=== PATIENT | female | born 1995 | race Two or more races ===

== ENCOUNTER 2019-05-10 14:38 | Emergency (ER) | payer OTHER ==
[~2019-05-10] VITALS: Ht 157.5 cm; Wt 168.2 kg
[2019-05-10 14:42] VITALS: BP 140/96
[2019-05-10] MEDS ORDERED: ondansetron/PF 4mg/2ml inj IV ONE (15:00)
[2019-05-10] MEDS ORDERED: normal saline 1000ML IV soln IVB ONE (15:00)
[2019-05-10] MEDS ORDERED: morphine 4 MG/ML inj SYRINge IV ONE (15:00)
[2019-05-10 15:06] LABS: BASOPHILS # (AUTO) 0.1 X10'3 (0-0.2); BASOPHILS % (AUTO) 0.5 % (0-1); EOSINOPHILS # (AUTO) 0.2 X10'3 (0-0.9); EOSINOPHILS % (AUTO) 1.2 % (0-6); HEMOGLOBIN 14.2 g/dl (12.0-16.0); LYMPHOCYTES # (AUTO) 1.7 X10'3 (1.1-4.8); LYMPHOCYTES % (AUTO) 9.6 % (21-51); MEAN CORPUSCULAR HEMOGLOBIN 28.8 PG (27.0-31.0); MEAN CORPUSCULAR VOLUME 87.3 FL (78-98); MEAN PLATELET VOLUME 6.8 FL (7.4-10.4); MONOCYTES # (AUTO) 1.2 X10'3 (0-0.9); MONOCYTES % (AUTO) 7.1 % (2-12); NEUTROPHILS % (AUTO) 81.6 % (42-75); PLATELET COUNT 338 X10'3 (140-440); RED BLOOD COUNT 4.93 X10'6 (4.20-5.60); WHITE BLOOD COUNT 17.2 X10'3 (4.5-11.0)
[2019-05-10 15:21] LABS: ALANINE AMINOTRANSFERASE 31 U/L (12-78); ALBUMIN 3.7 G/DL (3.4-5.0); ALBUMIN/GLOBULIN RATIO 0.9 (1.1-1.5); ALKALINE PHOSPHATASE 73 IU/L (46-116); AMYLASE 29 U/L (25-115); ANION GAP 8 (8-16); ASPARTATE AMINO TRANSFERASE 20 U/L (10-37); BILIRUBIN,TOTAL 0.3 MG/DL (0.1-1.0); BLOOD UREA NITROGEN 14 MG/DL (7-18); BUN/CREATININE RATIO 18.4 (6.6-38.0); CALCIUM 8.7 MG/DL (8.5-10.1); CHLORIDE 104 MMOL/L (99-107); CREATININE 0.76 MG/DL (0.40-0.90); GLUCOSE 85 MG/DL (70-104); LIPASE 79 U/L (73-393); SODIUM 138 MMOL/L (135-145); TOTAL CARBON DIOXIDE 25.9 MMOL/L (24-32); TOTAL PROTEIN 7.7 G/DL (6.4-8.2); eGFR > 90 ML/MIN
[2019-05-10] MEDS ORDERED: morphine 4 MG/ML inj SYRINge IM ONE (15:25)
[2019-05-10] MEDS ORDERED: ondansetron 4mg rapidly disintigrating tab PO ONE (15:25)
[2019-05-10 15:40] LABS: HCG SERUM QL NEGATIVE
[2019-05-10] MEDS ORDERED: iohexol 300mg/ml 100ml inj. ONE (15:49)
== END 2019-05-10 16:54 | disposition home or self-care (01) ==
LOC: ER 14:39
DX: R10.84 Generalized abdominal pain (principal); D72.829 Elevated white blood cell count, unspecified; R19.7 Diarrhea, unspecified
CPT/HCPCS: 36415; 74176; 76700; 80053; 82150; 83690; 84703; 85025; 85610; 96372; 99284; J2270; J2405; Q9967

== ENCOUNTER 2020-06-05 18:43 | Emergency (ER) | payer MEDICAID ==
[~2020-06-05] VITALS: Ht 157.5 cm; Wt 167.0 kg
[2020-06-05] MEDS ORDERED: azithromycin 250mg tablet PO ONE (19:15)
[2020-06-05] MEDS ORDERED: AZIT250T82 PO (19:26)
[2020-06-05] MEDS ORDERED: CIPR10DR RIGHT EAR (19:26)
[2020-06-05 19:40] VITALS: BP 154/85
--- NOTE | 2020-06-06 14:24 | NUR ---
[facility] CALLED REGARDING RX GIVEN BY DR STOCKTON FOR RT EAR INFECTION. STATES THAT CIPRO OTIC GTTS IS NOT COVERED BY PT'S [employer]NER[employer] INSURANCE AND REQUESTED A CHANGE IN RX. THERESE OWEN CONSULTED; RX CHANGED TO CORTISPORIN OTIC GTTS, 2 GTTS RT EAR Q6HRS x10 DAYS
== END 2020-06-05 19:41 | disposition home or self-care (01) ==
LOC: ER 18:44
DX: H60.8X1 Other otitis externa, right ear (principal); H66.91 Otitis media, unspecified, right ear; Z79.2 Long term (current) use of antibiotics
CPT/HCPCS: 99283

== ENCOUNTER 2020-06-07 15:59 | Emergency (ER) | payer MEDICAID ==
[~2020-06-07] VITALS: Ht 157.5 cm; Wt 165.0 kg
[~2020-06-07 15:59] MED LIST: AZIT250T82 PO; CIPR10DR RIGHT EAR
[2020-06-07 16:07] VITALS: BP 168/101
[2020-06-07] MEDS ORDERED: AMOX-117 PO (16:59)
[2020-06-07] MEDS ORDERED: HYDR-4353 PO (16:59)
[2020-06-07] MEDS ORDERED: amox tr/potassium clavulanate 875/125mg TAB PO ONE (17:05)
[2020-06-07] MEDS ORDERED: neomy sulf/polymyx B sulf/HC 10ml otic suspension RIGHT EAR ONE (17:05)
== END 2020-06-07 17:58 | disposition home or self-care (01) ==
LOC: ER 16:00
DX: H60.91 Unspecified otitis externa, right ear (principal); Z79.2 Long term (current) use of antibiotics; Z79.899 Other long term (current) drug therapy
CPT/HCPCS: 99283

== ENCOUNTER 2021-07-02 08:26 | Emergency (ER) | payer MEDICAID ==
[~2021-07-02] VITALS: Ht 157.5 cm; Wt 155.0 kg
[2021-07-02 09:04] VITALS: BP 140/79
[2021-07-02] MEDS ORDERED: CIPR-202 PO (09:30)
== END 2021-07-02 09:38 | disposition home or self-care (01) ==
LOC: ER 08:27
DX: H60.8X3 Other otitis externa, bilateral (principal)
CPT/HCPCS: 99283

== ENCOUNTER 2021-07-05 20:57 | Emergency (ER) | payer MEDICAID ==
[~2021-07-05] VITALS: Ht 157.5 cm; Wt 152.7 kg
[~2021-07-05 20:57] MED LIST changes: -AZIT250T82 PO; +CIPR-202 PO; -CIPR10DR RIGHT EAR
[2021-07-05 21:10] VITALS: BP 149/97
[2021-07-05] MEDS ORDERED: ketorolac trometh. 30mg/ml inj. IM ONE (22:45)
== END 2021-07-05 23:24 | disposition home or self-care (01) ==
LOC: ER 21:00
DX: M25.562 Pain in left knee (principal); Z79.2 Long term (current) use of antibiotics
CPT/HCPCS: 73564; 96372; 99283; J1885

== ENCOUNTER 2021-10-20 12:38 | Emergency (ER) | payer MEDICAID ==
[~2021-10-20] VITALS: Ht 157.5 cm; Wt 160.0 kg
[2021-10-20 12:56] VITALS: BP 117/78
[2021-10-20 14:37] LABS: CLARITY,URINE CLOUDY (Clear); COLOR,URINE YELLOW (Yellow); GLUCOSE, URINE NEGATIVE (Neg); KETONES,URINE NEGATIVE (Neg); NITRITES, URINE NEGATIVE (Neg); OCCULT BLOOD,URINE TRACE-LYSED (Neg); PROTEIN,URINE NEGATIVE (Neg); UA COLLECTION TYPE CLN CATCH MIDSTREAM
[2021-10-20 14:38] LABS: LEUKOCYTE ESTERASE ,URINE SMALL (Neg); URINE HCG NEGATIVE (NEG)
[2021-10-20 14:42] LABS: BACTERIA,URINE 3+ /HPF (Neg); MUCUS STRANDS NONE SEEN /LPF (Neg); RBC,URINE 0-2 /HPF (0-2); SQUAMOUS EPITHELIAL CELL,UR MANY /LPF (FEW); WBC,URINE 20-30 /HPF (0-4)
[2021-10-20] MEDS ORDERED: SULF1TAB45 PO (14:58)
[2021-10-20] MEDS ORDERED: ONDA4TAB6 PO (15:20)
[2021-10-21] MEDS ORDERED: pantoprazole 40mg Tablet.DR PO SCH (07:30)
== END 2021-10-20 16:48 | disposition home or self-care (01) ==
LOC: ER 12:44
DX: N39.0 Urinary tract infection, site not specified (principal); R10.84 Generalized abdominal pain; R51.9 Headache, unspecified; R53.83 Other fatigue; R11.2 Nausea with vomiting, unspecified; R19.7 Diarrhea, unspecified; Z79.2 Long term (current) use of antibiotics; Z79.899 Other long term (current) drug therapy
CPT/HCPCS: 81001; 81025; 87502; 87503; 99283

== ENCOUNTER 2022-05-06 06:53 | Emergency (ER) | payer MEDICAID ==
[~2022-05-06] VITALS: Ht 157.5 cm; Wt 154.7 kg
[~2022-05-06 06:53] MED LIST changes: -CIPR-202 PO; +ONDA4TAB6 PO
[2022-05-06 07:01] VITALS: BP 142/90
[2022-05-06 07:24] LABS: URINE HCG NEGATIVE (NEG)
[2022-05-06 07:28] LABS: CLARITY,URINE SLIGHTLY CLOUDY (Clear); COLOR,URINE YELLOW (Yellow); GLUCOSE, URINE NEGATIVE (Neg); KETONES,URINE NEGATIVE (Neg); LEUKOCYTE ESTERASE ,URINE SMALL (Neg); NITRITES, URINE NEGATIVE (Neg); OCCULT BLOOD,URINE NEGATIVE (Neg); PROTEIN,URINE NEGATIVE (Neg); UROBILINOGEN,URINE 0.2 E.U/dL (0.2-1.0)
[2022-05-06 07:35] LABS: UA COLLECTION TYPE CLN CATCH MIDSTREAM
[2022-05-06 07:40] LABS: BACTERIA,URINE 1+ /HPF (Neg); RBC,URINE 0-2 /HPF (0-2); SQUAMOUS EPITHELIAL CELL,UR MANY /LPF (FEW)
[2022-05-06] MEDS ORDERED: cephalexin 250mg capsule PO ONE ×2 (08:35→09:00)
[2022-05-06 08:54] LABS: BASOPHILS # (AUTO) 0.1 X10'3 (0-0.2); BASOPHILS % (AUTO) 0.8 % (0-1); EOSINOPHILS # (AUTO) 0.2 X10'3 (0-0.9); HEMATOCRIT 45.3 % (35.0-45.0); LYMPHOCYTES # (AUTO) 2.1 X10'3 (1.1-4.8); LYMPHOCYTES % (AUTO) 22.4 % (21-51); MEAN CORPUSCULAR HEMOGLOBIN 28.5 PG (27.0-31.0); MEAN CORPUSCULAR HGB CONC 33.1 g/dL (33.0-36.5); MEAN CORPUSCULAR VOLUME 86.2 FL (78-98); MEAN PLATELET VOLUME 7.1 FL (7.4-10.4); MONOCYTES # (AUTO) 0.7 X10'3 (0-0.9); MONOCYTES % (AUTO) 7.5 % (2-12); NEUTROPHILS # (AUTO) 6.4 X10'3 (1.8-7.7); NEUTROPHILS % (AUTO) 67.3 % (42-75); PLATELET COUNT 323 X10'3 (140-440); RED BLOOD COUNT 5.26 X10'6 (4.20-5.60); RED CELL DISTRIBUTION WIDTH 13.1 % (11.5-14.5); WHITE BLOOD COUNT 9.5 X10'3 (4.5-11.0)
[2022-05-06 08:57] LABS: ANION GAP 9 (8-16); BLOOD UREA NITROGEN 15 MG/DL (7-18); BUN/CREATININE RATIO 21.7 (6.6-38.0); CALCIUM 8.8 MG/DL (8.5-10.1); CHLORIDE 105 MMOL/L (99-107); CREATININE 0.69 MG/DL (0.40-0.90); GLUCOSE 86 MG/DL (70-104); POTASSIUM 3.7 MMOL/L (3.5-5.1); SODIUM 141 MMOL/L (135-145); TOTAL CARBON DIOXIDE 27.4 MMOL/L (24-32); eGFR > 90 ML/MIN
[2022-05-06 08:58] LABS: ALANINE AMINOTRANSFERASE 32 U/L (12-78); ALBUMIN 3.8 G/DL (3.4-5.0); ALBUMIN/GLOBULIN RATIO 0.9 (1.1-1.5); ALKALINE PHOSPHATASE 69 IU/L (46-116); ASPARTATE AMINO TRANSFERASE 23 U/L (10-37); BILIRUBIN,TOTAL 0.4 MG/DL (0.1-1.0); LIPASE 57 U/L (73-393); TOTAL PROTEIN 7.9 G/DL (6.4-8.2)
[2022-05-06] MEDS ORDERED: CEPH-585 PO (08:58)
== END 2022-05-06 09:39 | disposition home or self-care (01) ==
LOC: ER 06:54
DX: N39.0 Urinary tract infection, site not specified (principal)
CPT/HCPCS: 36415; 80053; 81001; 81025; 83690; 85025; 99283

== ENCOUNTER 2022-07-12 22:51 | Emergency (ER) | payer MEDICAID ==
[~2022-07-12] VITALS: Ht 157.5 cm; Wt 166.4 kg
[~2022-07-12 22:51] MED LIST changes: +CEPH-585 PO
[2022-07-12] MEDS ORDERED: dexamethasone sod phosphate 10mg/ml inj IV STA (23:22)
[2022-07-12] MEDS ORDERED: albuterol 2.5 MG/3 ML nebule NEB ONE (23:25)
[2022-07-12 23:53] LABS: BASOPHILS % (AUTO) 0.7 % (0-1); EOSINOPHILS # (AUTO) 0.1 X10'3 (0-0.9); EOSINOPHILS % (AUTO) 1.9 % (0-6); HEMATOCRIT 47.7 % (35.0-45.0); LYMPHOCYTES # (AUTO) 1.6 X10'3 (1.1-4.8); LYMPHOCYTES % (AUTO) 22.9 % (21-51); MEAN CORPUSCULAR HEMOGLOBIN 29.6 PG (27.0-31.0); MEAN CORPUSCULAR HGB CONC 33.5 g/dL (33.0-36.5); MEAN CORPUSCULAR VOLUME 88.4 FL (78-98); MEAN PLATELET VOLUME 6.8 FL (7.4-10.4); MONOCYTES % (AUTO) 14.7 % (2-12); NEUTROPHILS # (AUTO) 4.2 X10'3 (1.8-7.7); NEUTROPHILS % (AUTO) 59.8 % (42-75); PLATELET COUNT 271 X10'3 (140-440); RED CELL DISTRIBUTION WIDTH 13.3 % (11.5-14.5); WHITE BLOOD COUNT 7.1 X10'3 (4.5-11.0)
[2022-07-13 00:04] LABS: D-DIMER 0.65 MG/L FEU (0-0.50)
[2022-07-13 00:08] LABS: ALANINE AMINOTRANSFERASE 35 U/L (12-78); ALBUMIN 3.8 G/DL (3.4-5.0); ALBUMIN/GLOBULIN RATIO 0.8 (1.1-1.5); ALKALINE PHOSPHATASE 75 IU/L (46-116); ANION GAP 12 (8-16); ASPARTATE AMINO TRANSFERASE 23 U/L (10-37); BILIRUBIN,TOTAL 0.4 MG/DL (0.1-1.0); BLOOD UREA NITROGEN 11 MG/DL (7-18); BUN/CREATININE RATIO 13.3 (6.6-38.0); CALCIUM 8.8 MG/DL (8.5-10.1); CHLORIDE 104 MMOL/L (99-107); CREATININE 0.83 MG/DL (0.40-0.90); GLUCOSE 91 MG/DL (70-104); POTASSIUM 3.7 MMOL/L (3.5-5.1); SODIUM 142 MMOL/L (135-145); TOTAL CARBON DIOXIDE 26.3 MMOL/L (24-32); TOTAL PROTEIN 8.4 G/DL (6.4-8.2); eGFR 83 ML/MIN
[2022-07-13] MEDS ORDERED: iohexol 350MG/ML 100ml bottle IV ONE (01:44)
[2022-07-13 03:15] LABS: HCG SERUM QL NEGATIVE
--- NOTE | 2022-07-13 03:45 | NUR ---
PT IS IN CT SCAN
[2022-07-13] MEDS ORDERED: ALBU8.5H17 IH (04:55)
[2022-07-13] MEDS ORDERED: PRED20TA PO (04:55)
[2022-07-13] MEDS ORDERED: NIRM1TAB PO (05:05)
[2022-07-13 05:17] VITALS: BP 141/76
== END 2022-07-13 05:21 | disposition home or self-care (01) ==
LOC: ER 22:52
DX: U07.1 COVID-19 (principal); F17.200 Nicotine dependence, unspecified, uncomplicated; F12.10 Cannabis abuse, uncomplicated; Z79.899 Other long term (current) drug therapy; Z79.2 Long term (current) use of antibiotics
CPT/HCPCS: 36415; 71045; 71275; 80053; 83880; 84484; 84703; 85025; 85379; 87811; 93005; 94640; 96374; 99285; J1100; J3490; Q9967; 94760; 96372

== ENCOUNTER 2022-11-20 15:57 | Emergency (ER) | payer MEDICAID ==
[~2022-11-20] VITALS: Ht 157.5 cm; Wt 145.0 kg
[~2022-11-20 15:57] MED LIST changes: +ALBU8.5H17 IH; +NIRM1TAB PO
[2022-11-20 16:39] VITALS: BP 144/84
[2022-11-20] MEDS ORDERED: acetaminophen 325mg tablet PO ONE (18:05)
[2022-11-20] MEDS ORDERED: ondansetron 4mg rapidly disintigrating tab PO ONE (18:05)
[2022-11-20] MEDS ORDERED: oseltamivir phos 75mg capsule PO ONE (18:25)
[2022-11-20] MEDS ORDERED: ONDA4TAB12 PO (18:26)
[2022-11-20] MEDS ORDERED: TAM75C PO (18:26)
== END 2022-11-20 18:47 | disposition home or self-care (01) ==
LOC: ER 15:58
DX: J11.1 Influenza due to unidentified influenza virus with other respiratory manifestations (principal); Z20.822 Contact with and (suspected) exposure to COVID-19; J34.89 Other specified disorders of nose and nasal sinuses; Z87.891 Personal history of nicotine dependence
CPT/HCPCS: 71045; 87502; 87503; 87635; 99284; C9803

== ENCOUNTER 2023-10-23 21:44 | Emergency (ER) | payer MEDICAID ==
[~2023-10-23] VITALS: Ht 157.5 cm; Wt 140.0 kg
[~2023-10-23 21:44] MED LIST changes: -CEPH-585 PO; +ONDA4TAB12 PO
[2023-10-23 22:44] LABS: STREP A SCREEN NEGATIVE (Neg)
[2023-10-24] MEDS ORDERED: ibuprofen tablet 400 MG TABLET PO ONE (00:45)
[2023-10-24] MEDS ORDERED: acetaminophen 325mg tablet PO ONE (00:45)
[2023-10-24 00:47] VITALS: BP 121/79; PULSE 48; RESP 16; TEMP 97.7; O2SAT 98
[2023-10-24] MEDS ORDERED: acetaminophen 325mg tablet ONE (01:02)
[2023-10-24] MEDS ORDERED: ibuprofen tablet 400 MG TABLET ONE (01:02)
== END 2023-10-24 01:11 | disposition home or self-care (01) ==
LOC: ER 21:45
DX: J02.9 Acute pharyngitis, unspecified (principal)
CPT/HCPCS: 87081; 87880; 99283

== ENCOUNTER 2025-01-10 11:15 | Emergency (ER) | payer MEDICAID, OTHER ==
[~2025-01-10] VITALS: Ht 157.5 cm; Wt 154.6 kg
[~2025-01-10 11:15] MED LIST changes: +MEDR10TA10 PO; +ONDA-243 PO; -ONDA4TAB12 PO
[2025-01-10] MEDS: ibuprofen tablet 400 MG TABLET PO ONE (12:35)
[2025-01-10 13:25] VITALS: BP 132/92; PULSE 82; RESP 16; TEMP 98.4; O2SAT 99
== END 2025-01-10 13:36 | disposition home or self-care (01) ==
LOC: ER 11:16
DX: S70.01XA Contusion of right hip, initial encounter (principal); S30.0XXA Contusion of lower back and pelvis, initial encounter; M25.551 Pain in right hip; F12.90 Cannabis use, unspecified, uncomplicated; Z79.899 Other long term (current) drug therapy; Z72.89 Other problems related to lifestyle; X58.XXXA Exposure to other specified factors, initial encounter; Y93.89 Activity, other specified; Y92.89 Other specified places as the place of occurrence of the external cause; Y99.8 Other external cause status
CPT/HCPCS: 73502; 99284